=== PATIENT | male | born 1985 | race Caucasian/White ===

== ENCOUNTER 2016-06-16 13:14 | Inpatient (IN) | payer MEDICAID ==
[~2016-06-16] VITALS: Ht 170.2 cm; Wt 82.7 kg
[2016-06-16 15:53] VITALS: BP 133/75
[2016-06-16] MEDS ORDERED: PROP20 PO (16:44)
[2016-06-16] MEDS ORDERED: TRAZ-144 PO (16:44)
[2016-06-16 18:23] VITALS: BP 116/65
[2016-06-16] MEDS: LORazepam 1 MG TABLET PO PRN (18:29)
[2016-06-16] MEDS ORDERED: INFLUENZA VIRUS VACCINE QVS 2016-17 (3YR+)/PF 60 MCG/0.5 ML SYRINGE IM ONE (19:30)
[2016-06-17 06:38] VITALS: BP 121/68
[2016-06-17] MEDS: LORazepam 1 MG TABLET PO PRN ×3 (06:40→16:58)
[2016-06-17 08:10] LABS: BASOPHILS # (AUTO) 0.03 K/uL (0.00-0.20); BASOPHILS % (AUTO) 0.5 % (0.0-2.0); EOSINOPHILS # (AUTO) 0.29 K/uL (0.00-0.70); EOSINOPHILS % (AUTO) 5.32 % (1.0-6.0); HEMATOCRIT 44.6 % (41-53); HEMOGLOBIN 15.2 g/dL (13.5-17.5); HEMOGLOBIN A1C 5.6 % (4.5-6.2); LYMPHOCYTES # (AUTO) 1.5 K/uL (1.0-4.8); LYMPHOCYTES % (AUTO) 27.5 % (22.0-44.0); MEAN CORPUSCULAR HEMOGLOBIN 29.7 pg (26.0-34.0); MEAN CORPUSCULAR HGB CONC 34.2 G/dL (31.0-37.0); MEAN CORPUSCULAR VOLUME 87 fL (80-100); MONOCYTES # (AUTO) 0.4 K/uL (0.1-1.0); MONOCYTES % (AUTO) 7.3 % (2.0-9.0); NEUTROPHILS # (AUTO) 3.3 K/uL (1.8-7.7); NEUTROPHILS % (AUTO) 59.4 % (40.0-70.0); PLATELET COUNT (AUTO) 231 K/uL (150-450); RED BLOOD CELL COUNT(AUTO) 5.12 MIL/uL (4.50-5.90); RED CELL DISTRIBUTION WIDTH 12.9 % (11.5-14.5); WHITE BLOOD COUNT (AUTO) 5.5 K/uL (4.5-11.0)
[2016-06-17 08:16] VITALS: BP 124/68
[2016-06-17 08:51] LABS: ALANINE AMINOTRANSFERASE 20 U/L (12-78); ALBUMIN 3.7 g/dL (3.4-5.0); ANION GAP 4 mmol/L (8-16); ASPARTATE AMINOTRANSFERASE 14 U/L (15-37); BILIRUBIN,TOTAL 0.3 mg/dL (0.1-1.0); CALCIUM, TOTAL 8.8 mg/dL (8.8-10.5); CARBON DIOXIDE 31 mmol/L (22-29); CHLORIDE 105 mmol/L (98-107); CHOL/HDL RATIO 3.4 (4.2-7.3); CREATINE KINASE MB 0.7 ng/mL (0-5); CREATINE KINASE, TOTAL 99 U/L (39-308); CREATININE 1.11 mg/dL (0.60-1.30); GLOMERULAR FILTR. RATE CALC > 60 mL/min (>60); POTASSIUM 4.4 mmol/L (3.5-5.1); SODIUM SERUM 140 mmol/L (136-145); THYROID STIMULATING HORMONE 0.67 uIU/mL (0.36-3.74); TOTAL PROTEIN, SERUM 7.2 g/dL (6.4-8.2); UREA NITROGEN, BLOOD 19 mg/dL (7-18)
[2016-06-17 09:13] LABS: GLUCOSE, URINE (UA) NEGATIVE (NEGATIVE); KETONES,URINE TRACE mg/dL (NEGATIVE); LEUKOCYTE ESTERASE ,URINE NEGATIVE (NEGATIVE); OCCULT BLOOD,URINE NEGATIVE (NEGATIVE); PROTEIN,URINE NEGATIVE (NEGATIVE)
[2016-06-17 09:14] LABS: ADD UA MICROSCOPIC NO; APPEARANCE,URINE HAZY (CLEAR)
[2016-06-17] MEDS: NICOTINE 21 MG/24 HOUR PATCH TD SCH (09:45)
[2016-06-17] MEDS: PANTOPRAZOLE SODIUM 40 MG DR TABLET PO SCH (10:47)
[2016-06-17 16:19] VITALS: BP 106/78
[2016-06-17] MEDS: CITALOPRAM HYDROBROMIDE 20 MG TABLET PO SCH (20:29)
[2016-06-17] MEDS: QUEtiapine FUMARATE 100 MG TABLET PO SCH (20:29)
[2016-06-18 04:33] VITALS: BP 116/68
[2016-06-18] MEDS: LORazepam 1 MG TABLET PO PRN ×2 (07:01→17:15)
[2016-06-18 08:33] VITALS: BP 122/60
[2016-06-18] MEDS: QUEtiapine FUMARATE 100 MG TABLET PO SCH ×2 (09:56→17:15)
[2016-06-18] MEDS: CITALOPRAM HYDROBROMIDE 20 MG TABLET PO SCH (09:56)
[2016-06-18] MEDS: NICOTINE 21 MG/24 HOUR PATCH TD SCH (09:56)
[2016-06-18] MEDS: PANTOPRAZOLE SODIUM 40 MG DR TABLET PO SCH (09:56)
[2016-06-18 13:19] LABS: HEPATITIS Bs ANTIGEN SCREEN P Negative (Negative); HEPATITIS C AB SCREEN <0.1 s/co ratio (0.0-0.9)
[2016-06-18 16:05] VITALS: BP 114/70
[2016-06-19 06:44] VITALS: BP 136/66
[2016-06-19] MEDS: LORazepam 1 MG TABLET PO PRN ×2 (07:01→16:30)
[2016-06-19 08:03] VITALS: BP 118/60
[2016-06-19] MEDS: QUEtiapine FUMARATE 100 MG TABLET PO SCH ×2 (09:43→16:30)
[2016-06-19] MEDS: PANTOPRAZOLE SODIUM 40 MG DR TABLET PO SCH (09:43)
[2016-06-19] MEDS: CITALOPRAM HYDROBROMIDE 20 MG TABLET PO SCH (09:43)
[2016-06-19] MEDS: NICOTINE 21 MG/24 HOUR PATCH TD SCH (09:44)
[2016-06-19 16:00] VITALS: BP 124/74
[2016-06-19] MEDS: ZOLPIDEM TARTRATE 10 MG TABLET PO PRN (21:00)
[2016-06-20 06:30] VITALS: BP 103/65
[2016-06-20] MEDS: LORazepam 1 MG TABLET PO PRN ×2 (06:55→16:43)
[2016-06-20 08:02] VITALS: BP 130/69
[2016-06-20] MEDS: PANTOPRAZOLE SODIUM 40 MG DR TABLET PO SCH (08:20)
[2016-06-20] MEDS: QUEtiapine FUMARATE 100 MG TABLET PO SCH ×2 (08:20→16:43)
[2016-06-20] MEDS: CITALOPRAM HYDROBROMIDE 20 MG TABLET PO SCH (08:20)
[2016-06-20] MEDS: NICOTINE 21 MG/24 HOUR PATCH TD SCH (08:21)
[2016-06-20 16:17] VITALS: BP 134/78
[2016-06-20] MEDS: ZOLPIDEM TARTRATE 10 MG TABLET PO PRN (20:18)
[2016-06-21 06:40] VITALS: BP 125/73
[2016-06-21] MEDS: LORazepam 1 MG TABLET PO PRN ×2 (06:59→09:47)
[2016-06-21 08:35] VITALS: BP 114/62
[2016-06-21] MEDS: NICOTINE 21 MG/24 HOUR PATCH TD SCH (09:46)
[2016-06-21] MEDS: PANTOPRAZOLE SODIUM 40 MG DR TABLET PO SCH (09:46)
[2016-06-21] MEDS: QUEtiapine FUMARATE 100 MG TABLET PO SCH (09:46)
[2016-06-21] MEDS: CITALOPRAM HYDROBROMIDE 20 MG TABLET PO SCH (09:47)
[2016-06-21] MEDS ORDERED: PANT40TA25 PO (15:17)
[2016-06-21] MEDS ORDERED: QUET100T PO (15:17)
[2016-06-21] MEDS ORDERED: CITA20TA9 PO (15:17)
== END 2016-06-21 16:40 | disposition home or self-care (01) | DRG 750 ==
LOC: B3A 16:52
PROVIDERS: ADMIT Psychiatry & Neurology Psychiatry; ATTEND Psychiatry & Neurology Psychiatry
DX: F25.0 Schizoaffective disorder, bipolar type (principal); R45.851 Suicidal ideations; F15.20 Other stimulant dependence, uncomplicated; F41.9 Anxiety disorder, unspecified; K21.9 Gastro-esophageal reflux disease without esophagitis; F17.200 Nicotine dependence, unspecified, uncomplicated; Z79.899 Other long term (current) drug therapy; Z28.21 Immunization not carried out because of patient refusal; Z91.5 Personal history of self-harm
CPT/HCPCS: 80074; 82306; 82607; 82746; 83036; 83735; 84439; 84443; 86592